=== PATIENT | male | born 2000 | race Caucasian/White ===

== ENCOUNTER 2022-01-28 12:06 | Emergency (ER) | payer OTHER, SELFPAY ==
--- NOTE | 2022-01-28 12:30 | DI.RAD_ITS ---
Exam(s) XR HAND LT COMPLETE EXAM: XR HAND LT COMPLETE CLINICAL HISTORY: 5th finger crush injury. TECHNIQUE: 2D digital imaging was performed. COMPARISON: No exams were available for comparison FINDINGS: 3 views There is avulsion of prominent amount of soft tissue over the distal aspect of the 5th finger. This extends down to the bone and there is partial loss of the tuft of the distal phalanx. No radiopaque foreign body. No osseous lesions. No other fractures identified. IMPRESSION: DATA REPOSITORY: RADIATION DOSE DELIVERED:
[2022-01-28 12:34] VITALS: TEMP 36.4
--- NOTE | 2022-01-28 12:46 | ED.GENADUL_ITS ---
Discharge Plan Disposition Patient Disposition: HOME Condition: Improving Discharge Details Clinical Impression: Traumatic amputation of tip of little finger Primary Care Provider: Unknown,Unknown ED Provider: Donald Dias Home Meds and New Rx's Prescriptions: New cephalexin 500 mg capsule 500 mg PO QID 3 Days Qty: 12 0RF oxycodone-acetaminophen [Percocet] 5-325 mg tablet 1 tab PO Q8H PRNQty: 8 0RF Discharge Instructions Instructions: Finger Amputation (ED) Additional Instructions: Keflex and Percocet as directed, Percocet may cause drowsiness and constipation. Rest, elevate, cool compresses every 2 hours for 20 minutes. Nvkv-rub-sgeyfof Motrin as directed as well as directed. Please watch for new or worsening symptoms and return to the ER for any concerns. Follow the instructions given to you by Dr. Salamanca. Contact his office tomorrow for outpatient reevaluation. Referrals: Refugio Salamanca MD [ [facility] STAFF PHYSICIAN] - Discharge Data Discharge Date/Time-TO BE ENTERED AT DEPARTURE: 01/28/22 14:49 Medical Decision Making This is a 22-year-old male, kysg-augv-vzscowam, reports that his tetanus status is up-to-date, presents for a traumatic left fifth digit fingertip amputation. Plan is to obtain IV access, perform a digital block, obtain routine screening laboratory values and obtain x-ray. Given this appears to be an open fracture, will provide 2 g IV Ancef Digital block of the fifth digit performed using a total of 6 cc dpnk-lqf-pjfv mixture of 1% lidocaine and 0.5% bupivacaine. Patient tolerated well and was seen in pain-free. Finger was then thoroughly soaked and cleaned. X-ray obtained and results There is avulsion of prominent amount of soft tissue over the distal aspect of the 5th finger. This extends down to the bone and there is partial loss of the tuft of the distal phalanx. No radiopaque foreign body. No osseous lesions. No other fractures identified. Case discussed with Dr. Salamanca who came to the ER to evaluate patient and perform revision, please see his note. He also dressed the wound. States the patient can be discharged with analgesia and 3 days worth of Keflex, and he will be happy to follow the patient in his clinic. Standard discharge and return precautions were provided. Patient understands, is agreeable to this plan, and has no additional questions or concerns upon discharge. This documentation was generated using [employer] dictation system, please disregard any oddities of phrase or misspellings. Imaging Data Radiologic Study: Attestation: I personally reviewed and interpreted this imaging study as follows: Imaging: X-Ray Radiologist's impression: Exam(s) XR HAND LT COMPLETE EXAM: XR HAND LT COMPLETE CLINICAL HISTORY: 5th finger crush injury. TECHNIQUE: 2D digital imaging was performed. COMPARISON: No exams were available for comparison FINDINGS: 3 views There is avulsion of prominent amount of soft tissue over the distal aspect of the 5th finger. This extends down to the bone and there is partial loss of the tuft of the distal phalanx. No radiopaque foreign body. No osseous lesions. No other fractures identified. Lab Data Lab results reviewed: Yes I reviewed the patient's lab results. Labs: Laboratory Tests Range/Units 01/28/22 01/28/22 13:05 13:05 WBC (4.4-10.8) 10^3/uL 9.52 RBC (4.36-5.78) 10^6/uL 5.03 Hgb (13.5-17.5) g/dL 15.1 Hct (40.0-50.0) % 44.0 MCV (80-95) fL 88 MCH (27.0-33.0) pg 30.0 MCHC (32.0-36.0) % 34.3 RDW (11.8-14.1) % 11.9 Plt Count (130-400) 10^3/uL 362 MPV (8.0-11.0) fL 9.4 Immature Gran % 0.2 Neutrophils % 65.6 Lymphocytes % 25.3 Monocytes % 7.9 Eosinophils % 0.7 Basophils % 0.3 Nucleated RBC % (0.0-0.3) % 0.0 Absolute Neutrophils (1.2-6.7) 10^3/uL 6.24 Absolute Lymphocytes (1.2-3.4) 10^3/uL 2.41 Absolute Monocytes (0.1-0.8) 10^3/uL 0.75 Absolute Eosinophils (0.0-0.7) 10^3/uL 0.07 Absolute Basophils (0.0-0.2) 10^3/uL 0.03 Sodium (136-145) mmol/L 139 Potassium (3.5-5.1) mmol/L 3.6 Chloride (98-107) mmol/L 102 Carbon Dioxide (21.0-32.0) mmol/L 22.1 Anion Gap (3-11) mmol/L 14.9 H BUN (7-18) mg/dL 22 H Creatinine (0.70-1.30) mg/dL 1.4 H Estimated GFR/1.73 m2 (mL/min/1.73m2) >= 60.00 Glucose (74-106) mg/dL 106 Calcium (8.5-10.1) mg/dL 9.8 Total Bilirubin (0.2-1.0) mg/dL 0.4 AST (15-37) U/L 23 ALT (16-63) U/L 30 Alkaline Phosphatase (46-116) U/L 61 Total Protein (6.4-8.2) g/dL 8.3 H Albumin (3.4-5.0) g/dL 4.5 HPI General Mode of arrival: ambulatory . Date/Time Provider Initiated Documentation: 01/28/22 12:14 . Limitations to Documentation: no limitations . Information obtained by: patient . History of Present Illness 22 year old M presents to the emergency department with the chief complaint of R 5th finger crush injury, described as severe, with intensity rated at 10. Quality is described as aching and crushing, and is localized to the left and upper extremity. Patient reports no radiation. Patient started experiencing this minute(s) (15) and it has been constant. No relieving factors improve symptom(s), Movement worsens symptoms . Patient notes no other symptoms.. Patient did receive the following treatments prior to arrival, none Related Data Home Medications Medication Instructions Recorded Confirmed cephalexin 500 mg capsule 500 mg PO QID 3 days #12 caps 01/28/22 oxycodone-acetaminophen 5 mg-325 1 tab PO Q8H PRN #8 tabs 01/28/22 mg tablet (Percocet) Previous Rx's Medication Instructions Recorded cephalexin 500 mg capsule 500 mg PO QID 3 days #12 caps 01/28/22 oxycodone-acetaminophen 5 mg-325 1 tab PO Q8H PRN #8 tabs 01/28/22 mg tablet (Percocet) Allergies Allergy/AdvReac Type Severity Reaction Status Date / Time Penicillins Allergy Mild Skin Rash Unverified 01/28/22 14:21 General Stated Complaint: Trauma FERN: 3 Review of Systems Constitutional Constitutional: Denies fever(s) and Denies weakness Musculoskeletal Musculoskeletal: Reports deformity, Denies numbness and Denies tingling Integumentary/Breasts Skin/Breast: Denies rash Neurologic Neurologic: Denies numbness, Denies tingling and Denies weakness PFSH All Active Problems (Updated 01/28/22 @ 14:36 by Refugio Salamanca MD) Open fracture of distal phalanx of digit of left hand (Acute) Social History Smoking/Tobacco Use Status: Never Smoking risk assessment performed?: Yes Alcohol Intake: never Do you feel safe at home: Yes Do you feel safe in your relationship?: Yes Exam Const General: cooperative, healthy appearing and in distress Orientation: alert and awake HENMO Head: normal to inspection, normocephalic and atraumatic Mouth: moist mucous membranes Eyes General: appearance normal, both eyes and all related structures Conjunctivae: conjunctivae normal Neck Neck: normal visual inspection, trachea midline and supple Resp Effort & Inspection: normal respiratory effort and able to speak in complete sentences Cardio Rate: regular rate Rhythm: regular rhythm Skin General skin exam: no rashes or lesions noted Neuro General: patient alert, patient awake, patient oriented x3, moves all extremities and no focal motor deficits Cognition: normal cognition Speech: speech normal Gait: normal gait Motor: muscle tone normal throughout Sensory Exam: no sensory deficits noted Extrem Other: Left hand, fifth digit with a fingertip partial amputation distal to the DIP joint, the nail has been completely removed. I am able to visualize what appears to be bone. 5-5 strength. There is a slight ooze of blood but easily controlled with pressure. Neuro, vascular, tendon intact. Psych Appearance: grossly normal Mental Status: mental status grossly normal Course Vital Signs Vital signs: Vital Signs Temperature 36.4 C L 01/28/22 12:34 Temperature 36.4 C L 01/28/22 12:34 Temperature Source Temporal Artery Scan 01/28/22 12:34 Respiratory Effort Non-Labored 01/28/22 12:42 Oxygen Delivery Method Room Air 01/28/22 12:34 Oxygen Flow Rate 0 01/28/22 12:34
[2022-01-28 13:17] LABS: Abs Immature Grans 0.02 10^3/uL (0.0-0.06); Absolute Basophil Count 0.03 10^3/uL (0.0-0.2); Absolute Eosinophil Count 0.07 10^3/uL (0.0-0.7); Absolute Lymphocyte Count 2.41 10^3/uL (1.2-3.4); Absolute Monocyte Count 0.75 10^3/uL (0.1-0.8); Absolute Neutrophil Count 6.24 10^3/uL (1.2-6.7); Basophils % 0.3; Eosinophils % 0.7; HGB 15.1 g/dL (13.5-17.5); Immature Grans % 0.2; Lymphocytes % 25.3; MCHC 34.3 % (32.0-36.0); MCV 88 fL (80-95); MPV 9.4 fL (8.0-11.0); Monocytes % 7.9; Neutrophils % 65.6; Platelet Count 362 10^3/uL (130-400); RBC 5.03 10^6/uL (4.36-5.78); RDW 11.9 % (11.8-14.1); RDW-SD 38.1 fL; WBC 9.52 10^3/uL (4.4-10.8)
[2022-01-28] MEDS: ceFAZolin 2,000 MG in Normal Saline 100 ML 200 MG IVPB (13:21)
[2022-01-28] MEDS: Bupivacaine 0.5% Pres-Free 30 ML VIAL (13:27)
[2022-01-28 13:48] LABS: ALT 30 U/L (16-63); AST 23 U/L (15-37); Albumin 4.5 g/dL (3.4-5.0); Alkaline Phosphatase 61 U/L (46-116); Anion Gap 14.9 mmol/L (3-11); BUN 22 mg/dL (7-18); Bilirubin, Total 0.4 mg/dL (0.2-1.0); CO2 22.1 mmol/L (21.0-32.0); CREATININE 1.4 mg/dL (0.70-1.30); Calcium 9.8 mg/dL (8.5-10.1); Chloride 102 mmol/L (98-107); Glucose 106 mg/dL (74-106); Potassium 3.6 mmol/L (3.5-5.1); Sodium 139 mmol/L (136-145); Total Protein 8.3 g/dL (6.4-8.2)
--- NOTE | 2022-01-28 14:29 | W.ORTHOCONSU ---
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 He had bleeding and apparent open injury to the tip of the finger was brought to the emergency department here at [facility]. He denies any previous issues with his left hand. He currently denies pain except for at the tip of the finger which is now much better after a digital block administered by the emergency department provider. He has no other major medical morbidities. Consults Consult date: 01/28/22 Requesting physician: Donald Dias Consult Reason Left little finger fingertip avulsion with distal phalanx fracture Assessment and Plan Assessment and plan (1) Open fracture of distal phalanx of digit of left hand: Status: Acute Assessment and plan: Ledy is a 22-year-old who unfortunately suffered a crush type injury to the end of the left little finger which resulted in an avulsion type injury pattern to the dorsal aspect of the left little finger with open fracture of the distal aspect of the distal phalanx. Given the instability of this bony fragment it had to be removed leaving only a small spike radially so I did shorten the bone approximately 5 to 6 mm to allow closure and also to have a uniform distal phalanx surface without prominence. The skin was able to reapproximate without tension covering all bony edges. This will be able to heal. I did try to contour the finger to a certain extent but I also left a slightly more bulky expecting some contraction and thinning over time. He was able to still demonstrate active finger DIP flexion. I would recommend 3 days of antibiotics. He should keep it elevated for the next few days. The wound was dressed and I recommend this dressing stays in place for 2 to 3 days. Afterwards he may cover with Vaseline gauze and gauze wrap versus a large Band-Aid. All his questions were answered. He will follow-up back in the [place] area. Review of Systems All systems reviewed & are unremarkable except as noted in HPI and below PFSH All Active Problems (Updated 01/28/22 @ 14:36 by Refugio Salamanca MD) Open fracture of distal phalanx of digit of left hand (Acute) Social History Smoking/Tobacco Use Status: Never Smoking risk assessment performed?: Yes Alcohol Intake: never Do you feel safe at home: Yes Do you feel safe in your relationship?: Yes Exam Extrem Other: Evaluation of the left hand shows a dorsal oblique injury to the left little finger with no apparent nail remaining. There is tissue loss to the mid coronal plane dorsally. There is an extension of the laceration extending approximately just past the DIP joint over the ulnar aspect of the finger. There is bone apparent in the wound bed without notable bone loss. Further inspection shows that the tip of the distal phalanx has 3 splinter fragments; the ulnar most fragment is quite loose and unstable. There is no gross contamination. The wound was previously irrigated by the emergency department staff. FDP, FDS, EDC function is intact. No injury seen proximal nor the other digits or hand. Results Last Vital Signs Temp 36.4 C L 01/28/22 12:34 Labs Result diagrams: 01/28/22 13:05 01/28/22 13:05 Labs: Laboratory Results - last 24 hr 01/28/22 01/28/22 13:05 13:05 WBC 9.52 RBC 5.03 Hgb 15.1 Hct 44.0 MCV 88 MCH 30.0 MCHC 34.3 RDW 11.9 Plt Count 362 MPV 9.4 Immature Gran % 0.2 Neutrophils % 65.6 Lymphocytes % 25.3 Monocytes % 7.9 Eosinophils % 0.7 Basophils % 0.3 Nucleated RBC % 0.0 Absolute Neutrophils 6.24 Absolute Lymphocytes 2.41 Absolute Monocytes 0.75 Absolute Eosinophils 0.07 Absolute Basophils 0.03 Sodium 139 Potassium 3.6 Chloride 102 Carbon Dioxide 22.1 Anion Gap 14.9 H BUN 22 H Creatinine 1.4 H Estimated GFR/1.73 m2 >= 60.00 Glucose 106 Calcium 9.8 Total Bilirubin 0.4 AST 23 ALT 30 Alkaline Phosphatase 61 Total Protein 8.3 H Albumin 4.5 Imaging Imaging Studies: X-ray of the left hand shows what appears to be a dorsal oblique wound to the distal end of the left little finger. On the oblique view there appears to be some fracture through the end of the distal phalanx which does not extend proximally into the joint. Overall gross alignment is preserved. Procedures Other Procedure Description/Findings: The left little finger was identified as the correct finger. It was previously prepped with Betadine. Sterile dressings were used to prepare a working field. The wound was once again inspected with findings confirmed. The distal aspect of the distal phalanx, especially ulnar aspect, was loose and splinted. Using a rongeur I brought the bone edges back to stable edge roughly in line with the eponychial him. There is no nail present. Some of the germinal matrix was removed with a rongeur. I then used a 2-0 Prolene to reapproximate the skin edges bringing some of the palmar tissue up to meet the dorsal tissue without tension. Multiple sutures were placed to reapproximate this with some overlap of the skin edges allowing for shrinkage and contraction. The hand was cleaned and the wound was dressed with Xeroform, 4 x 4's, conform wrap.
[2022-01-28 14:48] VITALS: BP 126/80; PULSE 80; RESP 18; TEMP 36.6; O2SAT 99
== END 2022-01-28 14:49 | disposition home or self-care (01) ==
PROVIDERS: Emergency Provider Physician Assistant
DX: S62.637B Displaced fracture of distal phalanx of left little finger, initial encounter for open fracture (principal); W31.89XA Contact with other specified machinery, initial encounter
CPT/HCPCS: 12041; 64450; 80053; 90471; 96365; 99284; 73130; 85025; 99283; J0690